=== PATIENT | female | born 1960 | race Caucasian/White ===

== ENCOUNTER 2020-06-22 18:44 | Emergency (ER) | payer OTHER ==
[2020-06-22] MEDS ORDERED: NAPROXEN500 MG PO (21:06)
== END 2020-06-22 21:23 | disposition home or self-care (01) ==
LOC: FER 18:44
DX: S60.211A Contusion of right wrist, initial encounter (principal); S50.01XA Contusion of right elbow, initial encounter; M67.431 Ganglion, right wrist; Z88.1 Allergy status to other antibiotic agents; V49.40XA Driver injured in collision with unspecified motor vehicles in traffic accident, initial encounter; Y92.410 Unspecified street and highway as the place of occurrence of the external cause
CPT/HCPCS: 73200